=== PATIENT | female | born 1995 | race Caucasian/White ===

== ENCOUNTER 2019-05-24 09:59 | Emergency (ER) | payer OTHER ==
[2019-05-24 10:13] VITALS: BP 123/81; PULSE 86; RESP 18; TEMP 98.3
--- NOTE | 2019-05-24 10:40 | ED ---
ENT HPI - General Chief complaint: ENT Stated complaint: sore throat Time Seen by Provider: 05/24/19 10:15 Source: patient Mode of arrival: ambulatory Limitations: physical limitation - History of Present Illness Initial comments: Patient is a 24-year-old female presents emergency Department with a chief complaint of tooth pain. Patient reports the pain is near tooth #19 for the past 3 days. Patient also reports mild swelling in the left body of the mandible.. Patient reports her current dental pain and infections in the same region. Patient reports that she recently lost dental insurance and is currently trying to find a dentist and pay [id number]. Patient reports the pain radiates to her left ear. Patient also reports maxillary sinus pressure. Patient denies fevers, night sweats or chills. Patient denies nausea or vomiting. Patient denies any drooling, changes in voice, dysphagia. - Related Data Previous Rx's Medication Instructions Recorded Acetaminophen Tab [Tylenol] 1,000 mg PO TID 5 Days tablet 04/12/16 Cyclobenzaprine [Flexeril] 10 mg PO TID #20 tab 04/12/16 Amoxicillin/Potassium Clav 1 tab PO Q12HR #20 tab 05/24/19 [Augmentin 875-125 Tablet] Allergies Allergy/AdvReac Type Severity Reaction Status Date / Time No Known Allergies Allergy Verified 05/24/19 10:13 Review of Systems ROS Statement: Those systems with pertinent positive or pertinent negative responses have been documented in the HPI. ROS Other: All systems not noted in ROS Statement are negative. Past Medical History Past Medical History: Asthma Additional Past Medical History / Comment(s): scoliosis History of Any Multi-Drug Resistant Organisms: None Reported Past Surgical History: No Surgical Hx Reported Additional Past Surgical History / Comment(s): PMH: SCOLIOSIS Past Psychological History: Anxiety, Depression Smoking Status: Never smoker Past Alcohol Use History: None Reported Past Drug Use History: None Reported General Exam Limitations: no limitations General appearance: alert, in no apparent distress Head exam: Present: atraumatic, normocephalic, normal inspection Eye exam: Present: normal appearance, PERRL, EOMI Pupils: Present: normal accommodation ENT exam: Present: normal exam, normal oropharynx (Erythema along the gumline near tooth #19 and 20. No dental abscess noted. No tonsillar enlargement or exudates. No uveal deviation), mucous membranes moist, TM's normal bilaterally (No bulging or tympanic membranes erythema.), normal external ear exam Neck exam: Present: normal inspection, full ROM Respiratory exam: Present: normal lung sounds bilaterally Cardiovascular Exam: Present: regular rate, normal rhythm, normal heart sounds Extremities exam: Present: normal inspection, full ROM Back exam: Present: normal inspection, full ROM Neurological exam: Present: alert, oriented X3 Psychiatric exam: Present: normal affect, normal mood Skin exam: Present: warm, intact, normal color Course Vital Signs 05/24/19 10:09 Temperature 98.3 F Pulse Rate 86 Respiratory 18 Rate Blood Pressure 123/81 O2 Sat by Pulse 99 Oximetry Medical Decision Making - Medical Decision Making patient is a 24-year-old male presents emergency Department with chief complaint of tooth pain. Patient does appear to have an infection near tooth #19 and 20. No dental abscesses are noted. No tonsillar enlargement or exudates noted. No uvular deviation. I'm going treat the patient for a dental infection with a 10 day course of Augmentin. Patient is to follow with a dentist. Patient advised about going to [facility] [place] for more affordable dental treatments. Patient advised to take the prescribed medication as directed. S trict return parameters were thoroughly discussed patient was understanding and agreeable. Patient vised alternate between Tylenol per pain control. Case discussed with physician. Disposition Clinical Impression: Pain, dental Disposition: HOME SELF-CARE Condition: Stable Instructions (If sedation given, give patient instructions): Toothache (ED) Additional Instructions: Please take prescribed medication as directed. Please follow with primary care. Please return to emergency department if symptoms worsen. Prescriptions: Amoxicillin/Potassium Clav [Augmentin 875-125 Tablet] 1 tab PO Q12HR #20 tab Is patient prescribed a controlled substance at d/c from ED?: No Referrals: None,Stated [Primary Care Provider] - 1-2 days Time of Disposition: 10:39
== END 2019-05-24 10:40 | disposition home or self-care (01) ==
LOC: EC 09:59
DX: K08.89 Other specified disorders of teeth and supporting structures (principal); R22.0 Localized swelling, mass and lump, head; J02.9 Acute pharyngitis, unspecified
CPT/HCPCS: 99282

== ENCOUNTER → 2024-07-13 | Outpatient (CLI) | payer OTHER | END | disposition home or self-care (01) | LOC: RADMRIMAIN 09:01 | PROVIDERS: ATTEND Family Medicine | DX: Z53.9 Procedure and treatment not carried out, unspecified reason (principal) ==